=== PATIENT | male | born 1940 | race Two or more races ===

== ENCOUNTER 2018-11-24 06:20 | Inpatient (IN) | payer MEDICARE ==
[~2018-11-24] VITALS: Ht 188 cm; Wt 87.1 kg
[~2018-11-24 06:20] MED LIST: HYDR-2595; [UNRECOGNIZED DRUG - CODE]; [UNRECOGNIZED DRUG - OTHER] PO
[2018-11-24] MEDS ORDERED: SODIUM CHLORIDE 0.9% 1,000 ML IV ONE (07:50)
[2018-11-24] MEDS ORDERED: METOCLOPRAMIDE HCL 5MG/ml INJ 2ml VIAL IV ONE (08:00)
[2018-11-24] MEDS ORDERED: KETOROLAC TROMETH 30 MG/ML 1ML VIAL IV ONE (08:00)
[2018-11-24 10:45] LABS: Magnesium 2.1 mg/dL (1.6-2.6)
[2018-11-24 10:48] LABS: Alanine Aminotransferase 39 U/L (16-61); Albumin 3.3 g/dL (3.4-5.0); Anion Gap 7 (5-15); Aspartate Aminotransferase 36 U/L (15-37); BUN/Creatinine Ratio 25.5; Basophils # (auto) 0 uL; Basophils % (auto) 0.2 % (0.0-2.0); Blood Urea Nitrogen 26 mg/dL (7-18); Calcium 8.7 mg/dL (8.5-10.1); Carbon Dioxide 23 mmol/L (21-32); Chloride 107 mmol/L (98-107); Eosinophils # (auto) 0 uL; Eosinophils % (auto) 0.1 % (0.0-7.0); GFR African American 91 mL/min; GFR Non-African American 75 mL/min; Glucose 113 mg/dL (74-106); Hematocrit 50.6 % (41.0-53.0); Hemoglobin 16.8 g/dL (13.5-17.5); Lymphocytes % (auto) 14.5 % (10.0-50.0); Mean Corpuscular Hemoglobin 33.6 pg (28.0-32.0); Mean Corpuscular Hgb Conc. 33.3 g/dL (32.0-36.0); Mean Corpuscular Volume 100.9 fL (80.0-100.0); Monocytes # (auto) 0.4 uL; Monocytes % (auto) 5.7 % (0.0-12.0); Neutrophils # (auto) 5.5 uL; Neutrophils % (auto) 79.5 % (37.0-80.0); Platelet Count (auto) 184 10^3/uL (140-450); Potassium 4.1 mmol/L (3.5-5.1); Red Blood Cells 5.02 10^6/uL (4.5-5.90); Red Cell Distribution Width 13.4 % (11.8-14.3); Sodium 137 mmol/L (136-145); White Blood Cell 6.9 10^3/uL (4.4-10.8)
[2018-11-24 10:53] LABS: Alkaline Phosphatase 120 U/L (45-117); Bilirubin, Total 0.9 mg/dL (0.2-1.0)
[2018-11-24 10:58] LABS: INR 1.04 (0.9-1.15); Partial Thromboplastin Time 29.2 sec (23.78-33.04); Prothrombin Time 11.1 sec (9.27-12.13)
[2018-11-24] MEDS ORDERED: IOHEXOL 350 MG/ML 100ML IJ ONE (15:28)
[2018-11-24] MEDS ORDERED: NITROGLYCERIN 0.4 MG SL TAB SL PRN (16:45)
[2018-11-24] MEDS ORDERED: ACETAMINOPHEN 500 MG TAB PO PRN (16:45)
[2018-11-24] MEDS ORDERED: hydrALAZINE HCL 20 MG/ML VL IV PRN (16:45)
[2018-11-24] MEDS ORDERED: ONDANSETRON HCL 4 MG/2 ML VIAL IV PRN (16:45)
[2018-11-24] MEDS ORDERED: HYDROcodone-ACET 5/325MG TAB PO PRN (16:45)
[2018-11-24] MEDS ORDERED: MORPHINE SULF INJ 2 MG/ML SYRINGE 1ML IV PRN ×2 (16:45)
--- NOTE | 2018-11-24 21:28 | NUR ---
Telemetry admit from ER JOSE GTZ admitted to Telemetry unit after SBAR received. Patient oriented to Marielena mccollum RN, unit, room, bed, and unit policies regarding patient care and visiting hours. Patient now on continuous telemetry monitoring, tele box # [id number] and telemetry reading on arrival to unit is Aflutter 94. Patient placed on bedside oxygen, weighed by bedscale and encouraged to call if they need something. All questions and concerns addressed, patient verbalized understanding. Note: Came per stretcher awake alert oriented x 4, not in discomfort, vital signs checked and recorded.
[2018-11-24] MEDS: METOPROLOL TARTRATE 25 MG TAB PO SCH (21:59)
[2018-11-24 22:00] VITALS: BP 148/95
[2018-11-24] MEDS: DOCUSATE SOD 100 MG CAP PO SCH (22:00)
[2018-11-24] MEDS: APIXABAN 2.5 MG TAB PO SCH (22:00)
[2018-11-24 22:03] VITALS: BP 161/84
[2018-11-24] MEDS ORDERED: METO-158 PO (22:18)
[2018-11-24] MEDS ORDERED: APIX5TAB PO (22:18)
--- NOTE | 2018-11-24 22:21 | NUR ---
Patient verbalized that he want to be a do not resuscitate status.
[2018-11-25 05:00] VITALS: BP 137/84
[2018-11-25 06:02] LABS: Basophils # (auto) 0 uL; Basophils % (auto) 0.2 % (0.0-2.0); Eosinophils # (auto) 0.1 uL; Eosinophils % (auto) 1.9 % (0.0-7.0); Hematocrit 47.8 % (41.0-53.0); Hemoglobin 16.2 g/dL (13.5-17.5); Lymphocytes # (auto) 1.9 uL; Lymphocytes % (auto) 34.3 % (10.0-50.0); Mean Corpuscular Hemoglobin 33.9 pg (28.0-32.0); Mean Corpuscular Hgb Conc. 33.9 g/dL (32.0-36.0); Mean Corpuscular Volume 99.9 fL (80.0-100.0); Monocytes # (auto) 0.6 uL; Monocytes % (auto) 10.4 % (0.0-12.0); Neutrophils % (auto) 53.2 % (37.0-80.0); Nucleated Red Blood Cells % 0.1 %; Platelet Count (auto) 174 10^3/uL (140-450); Red Blood Cells 4.78 10^6/uL (4.5-5.90); Red Cell Distribution Width 13.6 % (11.8-14.3); White Blood Cell 5.6 10^3/uL (4.4-10.8)
[2018-11-25 06:12] LABS: Calcium 8.4 mg/dL (8.5-10.1); Potassium 4.5 mmol/L (3.5-5.1)
[2018-11-25 07:09] LABS: INR 1.08 (0.9-1.15); Partial Thromboplastin Time 28.6 sec (23.78-33.04); Prothrombin Time 11.5 sec (9.27-12.13)
--- NOTE | 2018-11-25 07:21 | NUR ---
Report given to Payton Pittman to assume care, patient is resting no discomfort.
--- NOTE | 2018-11-25 07:30 | NUR ---
OPENING SHIFT NOTE ASSUMED CARE OF PATIENT. PATIENT AWAKE AND ALERT SITTING UP IN BED. NO S/S OF DISTRESS OR SOB NOTED. BED IN LOWEST LOCKED POSITION, CALL LIGHT WITHIN REACH. REVIEWED POC WITH PATIENT AND INSTRUCTED TO CALL FOR ASSIST NEEDED. WILL CONTINUE TO MONITOR.
[2018-11-25 09:00] VITALS: BP 134/72
[2018-11-25] MEDS: APIXABAN 2.5 MG TAB PO SCH (09:36)
[2018-11-25] MEDS: DOCUSATE SOD 100 MG CAP PO SCH (09:37)
[2018-11-25] MEDS: METOPROLOL TARTRATE 25 MG TAB PO SCH (09:38)
[2018-11-25] MEDS ORDERED: PANTOPRAZOLE 40 MG/10 ML VIAL IV SCH (10:00)
[2018-11-25] MEDS ORDERED: ASPirin-EC 81 mg tab PO SCH (10:00)
[2018-11-25 11:43] LABS: Urine Bacteria FEW /hpf (None Seen); Urine Blood TRACE /uL (Negative); Urine Specific Gravity 1.018 (1.001-1.035); Urine WBC 2 /hpf (0 - 3)
[2018-11-25 13:00] VITALS: BP 140/71
[2018-11-25 17:19] VITALS: BP 112/77
--- NOTE | 2018-11-25 17:30 | NUR ---
CALL OUT TO MD ATTEMPTED TO CALL DR QUINTERO AT THIS TIME. NO ANSWER. PATIENT REFUSING TO WAIT FOR CONSULT AT THIS TIME.
--- NOTE | 2018-11-25 17:44 | NUR ---
AMA PATIENT VOICED FRUSTRATION REGARDING WAITING FOR MD CONSULTATION FOR CARDIOLOGY. REQUESTING TO LEAVE AGAINST MEDICAL ADVICE. PATIENT SIGNED AMA FORM AT THIS TIME. IV WAS REMOVED USING CLEAN STERILE TECHNIQUE WITH PRESSURE DRESSING APPLIED. CATHETER WAS INTACT UPON REMOVAL. TELE REMOVED CLEANED AND RETURNED TO [facility]. PATIENT SHOWED NO S/S OF DISTRESS OR SOB UPON LEAVING.
--- NOTE | 2018-11-25 17:48 | NUR ---
PAGE OUT TO HOSPITALIST PAGE OUT TO ADALBERTO MCCULLOUGH
--- NOTE | 2018-11-25 18:15 | NUR ---
CALL BACK FROM HOSPITALIST SPOKE WITH ADALBERTO MCCULLOUGH NP AT THIS TIME. NOTIFIED OF PATIENT LEAVING AMA DUE TO NO LONGER WISHING TO WAIT FOR CONSULTATION.
[2018-11-25] MEDS ORDERED: METOPROLOL TARTRATE 25 MG TAB PO SCH (22:00)
== END 2018-11-25 17:44 | disposition left against medical advice (07) | DRG 311 ==
LOC: EDUNIT# 06:20 → ER 06:20 → EDBD 06:20 → TELE 16:07 → TELE-EAST 21:28
PROVIDERS: ADMIT Nurse Practitioner Acute Care; ATTEND Nurse Practitioner Acute Care
DX: I24.9 Acute ischemic heart disease, unspecified (principal); E44.1 Mild protein-calorie malnutrition; I11.0 Hypertensive heart disease with heart failure; I48.2 Chronic atrial fibrillation; Z68.24 Body mass index [BMI] 24.0-24.9, adult; I25.10 Atherosclerotic heart disease of native coronary artery without angina pectoris; I48.91 Unspecified atrial fibrillation; Z95.1 Presence of aortocoronary bypass graft; M81.0 Age-related osteoporosis without current pathological fracture; N28.1 Cyst of kidney, acquired; Z96.642 Presence of left artificial hip joint; K57.90 Diverticulosis of intestine, part unspecified, without perforation or abscess without bleeding; I50.810 Right heart failure, unspecified; Z53.21 Procedure and treatment not carried out due to patient leaving prior to being seen by health care provider; S22.079D Unspecified fracture of T9-T10 vertebra, subsequent encounter for fracture with routine healing
CPT/HCPCS: 36415; 71045; 71275; 74176; 80048; 80053; 80061; 81001; 83690; 83735; 83880; 84443; 84484; 85025; 85379; 85610; 85730; 86141; 93005; 93306; 96374; 96375; C9113; G0378; J1885

== ENCOUNTER 2022-02-11 06:47 | Day surgery (SDC) | payer MEDICARE ==
[~2022-02-11] VITALS: Ht 185.4 cm; Wt 72.6 kg
[~2022-02-11 06:47] MED LIST changes: +ACET-1156 PO; +APIX5TAB PO; +ASPI-543 PO; -HYDR-2595; +METO-158 PO; +RED600TA PO; -[UNRECOGNIZED DRUG - CODE]; -[UNRECOGNIZED DRUG - OTHER] PO
[2022-02-11] MEDS ORDERED: IODIXANOL 320MG/ML 100ML BTL IV ONE (07:20)
[2022-02-11] MEDS ORDERED: HEPARIN IN NS 1000Units/500mL 1,500 ML ONE (07:20)
[2022-02-11] MEDS ORDERED: ANGIOMAX 250 MG VIAL IV ONE (07:37)
[2022-02-11] MEDS ORDERED: MIDAZOLAM HCL 2MG/2ML 2ml VIAL (1mg/ml) ONE (07:38)
[2022-02-11] MEDS ORDERED: SODIUM CHL 0.9% 0 ML ONE (07:38)
[2022-02-11] MEDS ORDERED: fentaNYL CITRATE 100 MCG/2 ML VL ONE (07:38)
[2022-02-11] MEDS ORDERED: LIDOCAINE 2%HCL (LOCAL ANESTH.) INJ 10ml MDV ONE (07:39)
== END 2022-02-11 11:45 | disposition home or self-care (01) ==
LOC: CATH 06:47
PROVIDERS: ATTEND Internal Medicine Cardiovascular Disease
DX: R94.39 Abnormal result of other cardiovascular function study (principal); I25.10 Atherosclerotic heart disease of native coronary artery without angina pectoris; I05.0 Rheumatic mitral stenosis; E78.5 Hyperlipidemia, unspecified; Z95.5 Presence of coronary angioplasty implant and graft; Z79.82 Long term (current) use of aspirin; Z82.49 Family history of ischemic heart disease and other diseases of the circulatory system; Z81.8 Family history of other mental and behavioral disorders; Z80.8 Family history of malignant neoplasm of other organs or systems; Z20.822 Contact with and (suspected) exposure to COVID-19
CPT/HCPCS: 93461; C1751; C1760; C1769; C1894; J1644; J2001; J2250; J3010; J7030; Q9967; U0003; 99152; 99153

== ENCOUNTER 2022-08-23 10:04 | Inpatient (IN) | payer MEDICARE ==
[~2022-08-23] VITALS: Ht 182.9 cm; Wt 65.0 kg
[2022-08-23 10:50] LABS: Basophils # (auto) 0 10 ^3/uL (0-0.2); Eosinophils # (auto) 0.1 10 ^3/uL (0-0.8); Monocytes # (auto) 0.6 10 ^3/uL (0-1.3); Nucleated Red Blood Cells % 0.1 %; Red Blood Cells 4.48 10^6/uL (4.5-5.90)
[2022-08-23 10:53] LABS: Basophils % (auto) 0.7 % (0.0-2.0); Eosinophils % (auto) 1.1 % (0.0-7.0); Hemoglobin 15.2 g/dL (13.5-17.5); Lymphocytes # (auto) 0.9 10 ^3/uL (0.4-5.4); Mean Corpuscular Hemoglobin 33.9 pg (28.0-32.0); Mean Corpuscular Hgb Conc. 33.7 g/dL (32.0-36.0); Mean Corpuscular Volume 100.6 fL (80.0-100.0); Monocytes % (auto) 10.3 % (0.0-12.0); Neutrophils # (auto) 4.4 10 ^3/uL (1.6-8.6); Neutrophils % (auto) 72.9 % (37.0-80.0); Red Cell Distribution Width 14.7 % (11.8-14.3); White Blood Cell 6.1 10^3/uL (4.4-10.8)
[2022-08-23] MEDS ORDERED: FUROSEMIDE 20 MG/2 ML VIAL IV ONE (11:15)
[2022-08-23 11:47] LABS: Alanine Aminotransferase 29 U/L (16-61); Albumin 3.2 g/dL (3.4-5.0); Alkaline Phosphatase 185 U/L (45-117); Anion Gap 10 (5-15); Aspartate Aminotransferase 34 U/L (15-37); BUN/Creatinine Ratio 20.9; Bilirubin, Total 1.2 mg/dL (0.2-1.0); Blood Urea Nitrogen 24 mg/dL (7-18); Calcium 9.6 mg/dL (8.5-10.1); Carbon Dioxide 27 mmol/L (21-32); Chloride 101 mmol/L (98-107); GFR African American 78 mL/min; GFR Non-African American 65 mL/min; Glucose 95 mg/dL (74-106); Potassium 4.8 mmol/L (3.5-5.1); Sodium 138 mmol/L (136-145); Total Protein 6.7 g/dL (6.4-8.2)
[2022-08-23] MEDS ORDERED: NITROGLYCERIN 0.4 MG SL TAB SL PRN (13:30)
[2022-08-23] MEDS ORDERED: ACETAMINOPHEN 325 MG TAB PO PRN (13:30)
[2022-08-23] MEDS ORDERED: MORPHINE SULFATE INJ 2 MG/ml SYRG IV PRN ×2 (13:30)
[2022-08-23] MEDS ORDERED: HYDROcodone-ACET 5/325MG TAB PO PRN (13:30)
[2022-08-23] MEDS ORDERED: HEPARIN DRIP/D5W 100UNITS/ML 250 ML IV SCH (15:15)
[2022-08-23] MEDS ORDERED: ASPirin 81 mg TAB PO ONE (15:15)
[2022-08-23] MEDS ORDERED: FUROSEMIDE 40 MG/4 ML VIAL IV ONE (15:15)
[2022-08-23 15:43] LABS: Cholesterol 177 mg/dL (< 200); HDL Cholesterol 61 mg/dL (40-59); LDL Cholesterol 93 mg/dL (< 100); Triglycerides 111 mg/dL (< 150)
[2022-08-23 16:05] LABS: INR 1.12 (0.9-1.15); Partial Thromboplastin Time 31.3 sec (24.6-33.4)
[2022-08-23] MEDS ORDERED: IOHEXOL 350 MG/ML 100ML IJ ONE (18:19)
[2022-08-23 19:30] VITALS: BP 97/62
[2022-08-23] MEDS ORDERED: METOPROLOL TARTRATE 50 MG TAB PO SCH (22:00)
[2022-08-24] MEDS ORDERED: ASPirin-EC 81 mg tab PO SCH (10:00)
[2022-08-24] MEDS ORDERED: NTG 0.1MG/HR TOPICAL PATCH TD SCH (10:00)
[2022-08-24] MEDS ORDERED: FUROSEMIDE 40 MG/4 ML VIAL IV SCH (10:00)
[2022-08-24] MEDS ORDERED: ENOXAPARIN SOD 40 MG/0.4 ML SYRINGE SC SCH (10:00)
== END 2022-08-23 20:35 | disposition left against medical advice (07) | DRG 280 ==
LOC: EDBD 10:04 → ER 10:04 → TELE 13:30
PROVIDERS: ADMIT Registered Nurse; ATTEND Registered Nurse
DX: I21.4 Non-ST elevation (NSTEMI) myocardial infarction (principal); I50.43 Acute on chronic combined systolic (congestive) and diastolic (congestive) heart failure; E78.5 Hyperlipidemia, unspecified; D69.6 Thrombocytopenia, unspecified; I48.91 Unspecified atrial fibrillation; I25.10 Atherosclerotic heart disease of native coronary artery without angina pectoris; I50.9 Heart failure, unspecified; I11.0 Hypertensive heart disease with heart failure; Z53.29 Procedure and treatment not carried out because of patient's decision for other reasons; Z79.01 Long term (current) use of anticoagulants; Z82.0 Family history of epilepsy and other diseases of the nervous system; Z95.1 Presence of aortocoronary bypass graft; Z95.2 Presence of prosthetic heart valve; Z79.899 Other long term (current) drug therapy
CPT/HCPCS: 36415; 71046; 71275; 80053; 80061; 83036; 83880; 84443; 84484; 85025; 85379; 85610; 85730; 87426; 93005; 93306; 96374; G0378